=== PATIENT | female | born 1970 | race Caucasian/White ===

== ENCOUNTER 2016-07-23 09:41 | Emergency (ER) | payer OTHER ==
[~2016-07-23] VITALS: Ht 180.3 cm; Wt 145.0 kg
[~2016-07-23 09:41] MED LIST: AMOX-366 PO; CITA20TA AD; GABA600T PO; MAGN400C PO; VERA240C4 PO; VNL75T PO; [UNRECOGNIZED DRUG - CODE] PO; [UNRECOGNIZED DRUG - CODE] PO
[2016-07-23 09:48] VITALS: BP 120/76; RESP 18; O2SAT 98
--- NOTE | 2016-07-23 10:04 | ED.REPORT ---
HPI-General Illness Date of Service Jul 23, 2016 ED Provider: Glen John Patient is a 46 year old female with a hx of TIA, headaches, and a possible MS diagnosis who presents to the ED after being referred by urgent care complaining of a "strange feeling" in her throat. She describes it as feeling like phlegm is stuck in her throat and that she cannot clear it. She had some pain with swallowing this morning that has since resolved. Associated symptoms include headache onset yesterday that has since resolved. She denies SOB, fever , vomiting, trouble drinking, or any other symptoms. She has had similar symptoms previously for which she was worked up by ENT and prescribed Prilosec with relief. She has been off of Prilosec for 5-6 months. Nursing Notes Stated Complaint: TROUBLE SWALLOWING Chief Complaint: ENT & Mouth Nursing Notes Reviewed: Yes Allergies: Coded Allergies: No Known Allergies (Verified , 07/23/16) Scheduled Amoxicillin/Clav K 875-125 mg (Augmentin 875-125 mg) 1 Each Tablet 1 TABLET PO BID Aspirin/Calcium Carbonate/Mag ([facility] Buffered Aspirin 325 Mg Tb) 325 Mg Tablet 325 MG PO DAILY Citalopram-Expunged Drug, Do Not Renew! (Citalopram-Expunged Drug, Do Not Renew! ) 20 Mg Tablet 60 MG AD DAILY Famotidine (Pepcid) 40 Mg Tablet 40 MG PO HS Gabapentin-Expunged Drug, Do Not Renew! (Neurontin-Expunged Drug, Do Not Renew! ) 600 Mg Tablet 600 MG PO DAILY Magnesium Oxide (Magnesium) 400 Mg Capsule 400 MG PO BID Venlafaxine-Expunged Drug, Do Not Renew! (Effexor-Expunged Drug, Do Not Renew!) 75 Mg Tablet 75 MG PO DAILY Verapamil-Expunged Drug, Do Not Renew! (Verapamil-Expunged Drug, Do Not Renew!) 240 Mg Cap24h.pel 240 MG PO DAILY Scheduled PRN Ondansetron Hcl (Zofran) 4 Mg/2 Ml Soln 4 MG PO Q6 PRN PRN for nausea/headache General Time Seen by MD: 10:04 Chief Complaint Other (Throat problem ) Hx Obtained From: Patient Arrived By: Walk-in Sudden in Onset?: Yes Onset Occurred: 1 - 4 hours ago Symptom Duration: Since onset Similar Sx Previous: Yes Past Medical History Past Medical History Depression and anxiety Possible MS diagnosis - baseline R hand weakness and tingling with R sided facial droop TIA Headaches Non-specific clotting disorder Past Surgical History Denies Smoking History Never Smoker Ambulatory Status Independent Review of Systems +unable to clear throat -trouble drinking Full Review of Systems Constitutional: Denies: Fever Respiratory: Denies: Shortness of breath GI: Denies: Vomiting Neurologic: Reports: Headache Complete sys rev & neg: except as marked. Physical Exam Vital Signs Vital Signs Date Time Temp Pulse Resp B/P Pulse Ox O2 Delivery O2 Flow Rate FiO2 07/23/16 09:48 36.6 77 18 120/76 98 Room Air Initial VS: Reviewed, Vital signs normal Head / Eyes: Atraumatic, Normocephalic Abdomen / GI: Soft, Non-tender Skin: Warm, Dry Neurologic: Alert, Oriented, Nonfocal Psychiatric: Mood/affect normal, Behavior normal, Normal thought content General/Constitutional: Awake, Alert, No acute distress, Well appearing, Well developed ENT: Airway patent, No pooling of secretions uvula edematous and elongated swallowing mechanism intact no tonsillar erythema or swelling Neck: Full range of motion, No adenopathy, Thyroid NL Respiratory / Chest: No respiratory distress Neurologic: Oriented X3, Speech NL R sided facial droop (per patient- this is chronic (10 yrs) and has been worked up previously). Re-Eval/Medical Decision Med Decision/Clinical Course Patient comes in for a sore throat. She had similar symptoms within the last year was worked up for infectious etiologies including epiglottitis which had been unremarkable, ultimately saw an ear nose and throat who called this silent GERD. She states that her symptoms improved with antacids. She also states that she has been off antacids for approximately 6 months. She admits to eating English food yesterday which may have been a trigger. Her uvula is minimally edematous, this may also be the source of her symptoms. I do not think that her findings are consistent with a severe life-threatening bacterial infection such as bacterial uvulitis, epiglottitis, strep pharyngitis, peritonsillar or retropharyngeal abscess or any other concerning or life-threatening etiology. 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 This does not seem to represent an acute life-threatening neurologic phenomenon. Patient additionally had a headache yesterday though this did not sound out of the ordinary, patient has frequent chronic headaches and states that this is similar. Patient is reassured, she understands diagnosis and agrees with the discharge plan. Return and follow-up precautions given. Time of Eval: 10:47 Re-Evaluation/Progress Note: Rechecked patient to discuss case further. Discussed plan for discharge. Patient understands and agrees with plan. All questions addressed at this time. Counseled Regarding: Diagnosis, Need for follow-up, When/why to return to ED Discharge & Departure Primary Impression: Pharyngitis Pharyngitis/tonsillitis etiology: unspecified etiology Qualified Code: J02.9 - Acute pharyngitis, unspecified Disposition: Home Discharge Condition All VS Reviewed: Yes Condition: Stable Additional Instructions: I do not see signs of severe bacterial infection. Your uvula is mildly edematous which we will treat with a dose of steroids. Take Pepcid at home, follow up with your regular doctor as needed. Return to ER if you develop a high fever, swelling in your throat concerning for obstruction or concern with your breathing, severe lethargy, new neurologic symptoms, or any other concerns. Referrals: Marylu Emmanuel MD (PCP) Scribe Attestation Portions of this note were transcribed by Brian Richard. I, Dr. Carroll personally performed the history, physical exam and medical decision-making; I reviewed and confirmed the accuracy of the information in the transcribed note. Signed by: Brian Richard 07/23/16, 1118 copies to: Marylu Emmanuel MD, Timothy S DO Jul 23, 2016 10:04 BRIAN RICHARD Jul 23, 2016 10:32
[2016-07-23] MEDS ORDERED: LidocaineVisc 2%:Antacid 1:1 10 mL Syringe PO ONE (10:35)
[2016-07-23] MEDS ORDERED: FAMO40TA72 PO (11:14)
[2016-07-23 11:15] VITALS: BP 144/85; PULSE 74; O2SAT 98
== END 2016-07-23 11:20 | disposition home or self-care (01) ==
LOC: SED 09:41
DX: J02.9 Acute pharyngitis, unspecified (principal); F41.8 Other specified anxiety disorders; Z86.73 Personal history of transient ischemic attack (TIA), and cerebral infarction without residual deficits; Z79.82 Long term (current) use of aspirin
CPT/HCPCS: 87880; 99283; G0463